=== PATIENT | female | born 1965 | race Two or more races ===

== ENCOUNTER → 2024-05-24 07:54 | Outpatient (CLI) | payer OTHER ==
[~2024-05-24 07:54] MED LIST: CELEBREX200MG PO
== END | disposition home or self-care (01) ==
LOC: NUCLEAR 06:45
PROVIDERS: ATTEND Pain Medicine Interventional Pain Medicine
DX: M84.459A Pathological fracture, hip, unspecified, initial encounter for fracture (principal); C79.9 Secondary malignant neoplasm of unspecified site

== ENCOUNTER 2024-07-12 07:07 | Outpatient (CLI) | payer OTHER | END 2024-07-12 07:08 | disposition home or self-care (01) | LOC: NUCLEAR 07:07 | PROVIDERS: ATTEND Obstetrics & Gynecology Gynecologic Oncology | DX: C51.1 Malignant neoplasm of labium minus (principal) ==